=== PATIENT | male | born 1990 | race American Indian/Alaskan Native ===

== ENCOUNTER 2018-08-21 11:57 | Emergency (ER) | payer OTHER ==
--- NOTE | 2018-08-21 12:08 | Emergency Department Report ---
Blank Doc - Documentation Documentation: This is a 28-year-old male that productive cough, sore throat, and body aches. Stated has subjective fever and chills. Also stated has chest pain only during coughing. Denies any other complaints. This initial assessment diagnostic orders/clinical plan/treatment(s) is/are s ubject to change based on patient's health status, clinical progression and re- assessment by fellow clinical providers in the ED. Further treatment and workup at subsequent clinical providers discretion. Patient/guardians urged not to elope from ED s their condition may be serious if not clinically assessed and managed. Initial orders include: 1-Will order EKG and Chest xray
[2018-08-21] MEDS ORDERED: TORADOL IM ONE (13:19)
[2018-08-21] MEDS ORDERED: PROVENTIL IH ONE (13:20)
[2018-08-21] MEDS ORDERED: TORADOL IVP ONE (13:21)
[2018-08-21] MEDS ORDERED: NACL 0.9% 1000 ML 1,000 ML IV ONE (13:21)
--- NOTE | 2018-08-21 13:23 | Emergency Department Report ---
ED General Adult HPI - General Chief complaint: Fever Stated complaint: FLU LIKE Time Seen by Provider: 08/21/18 12:06 Source: patient Mode of arrival: Ambulatory Limitations: No Limitations - History of Present Illness Initial comments: Disposition emergency Department with a chief complaint of body aches, fever, sore throat and cough that started yesterday. Patient states he is having chest and back pain with coughing. Patient states he is taking [id number] medications or home for his fever. Patient denies any sick contacts. -: Sudden Severity scale (0 -10): 8 Quality: aching Consistency: constant Improves with: none Worsens with: none Associated Symptoms: denies other symptoms Treatments Prior to Arrival: none - Related Data Previous Rx's Medication Instructions Recorded Last Taken Type ALBUTEROL Inhaler (OR & NICU) 2 puff IH Q4HR PRN #1 inhalation 08/21/18 Unknown Rx [ProAir HFA Inhaler] Amoxicillin/Potassium Clav 1 each PO BID #14 tablet 08/21/18 Unknown Rx [Augmentin 875-125 Tablet] Ibuprofen [Motrin] 800 mg PO Q8HR PRN #30 tablet 08/21/18 Unknown Rx Oseltamivir [Tamiflu] 75 mg PO BID #10 cap 08/21/18 Unknown Rx Prednisone [predniSONE 10 mg 10 mg PO .TAPER #1 tab.ds.pk 08/21/18 Unknown Rx (6-Day Pack, 21 Tabs)] Allergies Allergy/AdvReac Type Severity Reaction Status Date / Time No Known Allergies Allergy Unverified 08/21/18 12:08 ED Review of Systems ROS: Stated complaint: FLU LIKE Other details as noted in HPI Comment: All other systems reviewed and negative Constitutional: denies: chills, fever Eyes: denies: eye pain, eye discharge, vision change ENT: throat pain. denies: ear pain Respiratory: denies: cough, shortness of breath, wheezing Cardiovascular: denies: chest pain, palpitations Endocrine: no symptoms reported Gastrointestinal: denies: abdominal pain, nausea, diarrhea Genitourinary: denies: urgency, dysuria Musculoskeletal: denies: back pain, joint swelling, arthralgia Skin: denies: rash, lesions Neurological: denies: headache, weakness, paresthesias Psychiatric: denies: anxiety, depression Hematological/Lymphatic: denies: easy bleeding, easy bruising ED Past Medical Hx - Past Medical History Previous Medical History?: No - Surgical History Past Surgical History?: No - Social History Smoking Status: Current Some Day Smoker Substance Use Type: None - Medications Home Medications: Home Medications Medication Instructions Recorded Confirmed Last Taken Type ALBUTEROL Inhaler (OR & NICU) 2 puff IH Q4HR PRN #1 inhalation 08/21/18 Unknown Rx [ProAir HFA Inhaler] Amoxicillin/Potassium Clav 1 each PO BID #14 tablet 08/21/18 Unknown Rx [Augmentin 875-125 Tablet] Ibuprofen [Motrin] 800 mg PO Q8HR PRN #30 tablet 08/21/18 Unknown Rx Oseltamivir [Tamiflu] 75 mg PO BID #10 cap 08/21/18 Unknown Rx Prednisone [predniSONE 10 mg 10 mg PO .TAPER #1 tab.ds.pk 08/21/18 Unknown Rx (6-Day Pack, 21 Tabs)] ED Physical Exam - General Limitations: No Limitations General appearance: alert, in no apparent distress - Head Head exam: Present: atraumatic, normocephalic - Eye Eye exam: Present: normal appearance, PERRL, EOMI - ENT ENT exam: Present: mucous membranes dry, other (the palatine tonsil beds have exudate) - Neck Neck exam: Present: normal inspection, full ROM. Absent: meningismus, lymphadenopathy, thyromegaly - Respiratory Respiratory exam: Present: normal lung sounds bilaterally, wheezes. Absent: respiratory distress, rales - Cardiovascular Cardiovascular Exam: Present: regular rate, normal rhythm. Absent: systolic murmur, diastolic murmur, rubs, gallop - GI/Abdominal GI/Abdominal exam: Present: soft, normal bowel sounds. Absent: distended, tenderness - Rectal Rectal exam: Present: deferred - Extremities Exam Extremities exam: Present: normal inspection - Back Exam Back exam: Present: normal inspection - Neurological Exam Neurological exam: Present: alert, oriented X3, CN II-XII intact. Absent: motor sensory deficit - Psychiatric Psychiatric exam: Present: normal affect, normal mood - Skin Skin exam: Present: warm, dry, intact, normal color. Absent: rash ED Course Vital Signs 08/21/18 12:06 Temperature 99.5 F Pulse Rate 96 H Respiratory 16 Rate Blood Pressure 157/74 O2 Sat by Pulse 97 Oximetry ED Medical Decision Making - Lab Data Lab Results 08/21/18 Range/Units 13:05 Influenza A (Rapid) Negative (Negative) Influenza B (Rapid) Negative (Negative) - Radiology Data Radiology results: report reviewed - Medical Decision Making Although the patient's rapid influenza test is negative the patient sows all classes symptoms of the flu which includes a significantly elevated temperature at home, muscle aches, and fatigue. Discussed results and plan acute with patient Patient felt better after receiving IV fluids and pain medicine Critical care attestation.: If time is entered above; I have spent that time in minutes in the direct care of this critically ill patient, excluding procedure time. ED Disposition Clinical Impression: Pharyngitis, Influenza Disposition: DC- TO HOME OR SELFCARE Is pt being admited?: No Does the pt Need Aspirin: No Condition: Stable Instructions: Pharyngitis (ED), Influenza (ED) Additional Instructions: return if worse Prescriptions: ALBUTEROL Inhaler (OR & NICU) [ProAir HFA Inhaler] 2 puff IH Q4HR PRN #1 inhalation PRN Reason: Shortness Of Breath Amoxicillin/Potassium Clav [Augmentin 875-125 Tablet] 1 each PO BID #14 tablet Ibuprofen [Motrin] 800 mg PO Q8HR PRN #30 tablet PRN Reason: Pain Oseltamivir [Tamiflu] 75 mg PO BID #10 cap Prednisone [predniSONE 10 mg (6-Day Pack, 21 Tabs)] 10 mg PO .TAPER #1 tab.ds.pk Referrals: LUCIANA BELTRAN [Primary Care Provider] - 3-5 Days [facility] [Provider Group] - 3-5 Days [facility] [Provider Group] - 3-5 Days Forms: Work/School Release Form(ED) Time of Disposition: 15:22
--- NOTE | 2018-08-21 13:30 | XRay Report ---
ROUTINE CHEST, TWO VIEWS: HISTORY: Cough. The trachea, heart, mediastinal contour, lung sandoval and bony thorax are unremarkable. IMPRESSION: Unremarkable chest x-ray.
[2018-08-21 15:53] VITALS: BP 152/98
== END 2018-08-21 15:52 | disposition home or self-care (01) ==
LOC: ED 11:57
DX: J11.1 Influenza due to unidentified influenza virus with other respiratory manifestations (principal); F17.200 Nicotine dependence, unspecified, uncomplicated
CPT/HCPCS: 71046; 87400; 93005; 93010; 96374; 99284; J1885; J7030

== ENCOUNTER 2018-08-22 18:15 | Emergency (ER) | payer OTHER ==
--- NOTE | 2018-08-22 18:44 | Emergency Department Report ---
Blank Doc - Documentation Documentation: 28 y o male was seen here yesterday and returns for same sx of throat pain. denies pmh of asthma reevaluate
[2018-08-22 19:49] VITALS: BP 178/113
--- NOTE | 2018-08-22 20:16 | Emergency Department Report ---
ED Fever HPI - General Chief Complaint: Fever Stated Complaint: SORE THROAT/FEVER Time Seen by Provider: 08/22/18 18:42 Source: patient - History of Present Illness Initial Comments: 28-year-old -Greek male who was seen yesterday comes back for sore throat and fever that reports is getting worse. Patient was discharged home on ibuprofen and Tamiflu prednisone and Augmentin as well as albuterol inhaler. Patient reports fever was 102.0.(Temperature in triage is 99.1. 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, Tylenol Associated Symptoms: sore throat ED Review of Systems ROS: Stated complaint: SORE THROAT/FEVER Other details as noted in HPI Comment: All other systems reviewed and negative Constitutional: fever ENT: throat pain ED Past Medical Hx - Past Medical History Previous Medical History?: No - Surgical History Past Surgical History?: Yes Additional Surgical History: TONSILS REMOVE - Social History Smoking Status: Current Some Day Smoker Substance Use Type: Alcohol - Medications Home Medications: Home Medications Medication Instructions Recorded Confirmed Last Taken Type ALBUTEROL Inhaler (OR & NICU) 2 puff IH Q4HR PRN #1 inhalation 08/21/18 Unknown Rx [ProAir HFA Inhaler] Amoxicillin/Potassium Clav 1 each PO BID #14 tablet 08/21/18 Unknown Rx [Augmentin 875-125 Tablet] Ibuprofen [Motrin] 800 mg PO Q8HR PRN #30 tablet 08/21/18 Unknown Rx Oseltamivir [Tamiflu] 75 mg PO BID #10 cap 08/21/18 Unknown Rx Prednisone [predniSONE 10 mg 10 mg PO .TAPER #1 tab.ds.pk 08/21/18 Unknown Rx (6-Day Pack, 21 Tabs)] ED Physical Exam - General Limitations: No Limitations General appearance: alert, in no apparent distress - Head Head exam: Present: atraumatic, normocephalic - Eye Eye exam: Present: EOMI - ENT ENT exam: Present: mucous membranes moist - Neck Neck exam: Present: normal inspection. Absent: lymphadenopathy - Respiratory Respiratory exam: Present: normal lung sounds bilaterally. Absent: respiratory distress - Cardiovascular Cardiovascular Exam: Present: regular rate, normal rhythm. Absent: systolic murmur, diastolic murmur, rubs, gallop - GI/Abdominal GI/Abdominal exam: Present: soft, normal bowel sounds - Neurological Exam Neurological exam: Present: alert, oriented X3 - Psychiatric Psychiatric exam: Present: normal affect, normal mood - Skin Skin exam: Present: warm, dry, intact, normal color. Absent: rash ED Course Vital Signs 08/22/18 18:41 Temperature 99.1 F Pulse Rate 100 H Respiratory 20 Rate Blood Pressure 178/113 O2 Sat by Pulse 98 Oximetry ED Medical Decision Making - Medical Decision Making Patient has been evaluated by this provider in fast track. Patient education on flulike symptoms and sore throat. I explained to patient that he is currently on appropriate medication for his symptoms and diagnosis. I explained to patient that it will take more than 24 hours for patient to be at baseline. Also spent to patient that he has to continue with the Tylenol and Motrin increases fluid intake. Discussed the patient that he needs to be sure he is on one layer of clothes when he has a fever. I discussed the patient he needs to follow up with the primary care provider for his elevated blood pressure and if his symptoms persist or gets worse. Patient verbalized understanding. Provider answer all questions. Critical care attestation.: If time is entered above; I have spent that time in minutes in the direct care of this critically ill patient, excluding procedure time. ED Disposition Clinical Impression: Pharyngitis Qualifiers: Pharyngitis/tonsillitis etiology: other specified organisms Qualified Code(s): J02.8 - Acute pharyngitis due to other specified organisms Disposition: DC-01 TO HOME OR SELFCARE Is pt being admited?: No Does the pt Need Aspirin: No Condition: Stable Instructions: Pharyngitis (ED) Additional Instructions: Please continue with medications that was prescribed to use yesterday. Please continue with Tylenol and Motrin for fever and pain control. Please increase her fluid intake advance her diet as tolerated light her body to rest. Follow- up with the primary care provider if his symptoms persist or gets worse. Referrals: LUCIANA BELTRAN [Primary Care Provider] - 3-5 Days Forms: Work/School Release Form(ED), Accompanied Note
== END 2018-08-22 20:22 | disposition home or self-care (01) ==
LOC: ED 18:15
DX: J02.8 Acute pharyngitis due to other specified organisms (principal); F17.200 Nicotine dependence, unspecified, uncomplicated
CPT/HCPCS: 99282

== ENCOUNTER 2019-01-17 23:54 | Emergency (ER) | payer OTHER ==
[2019-01-18] MEDS ORDERED: IBUPROFEN PO ONE (00:14)
[2019-01-18 04:53] VITALS: BP 144/94
--- NOTE | 2019-01-18 05:34 | Emergency Department Report ---
ED Back Pain/Injury HPI - General Chief Complaint: Back Pain/Injury Stated Complaint: BACK PAIN Time Seen by Provider: 01/18/19 04:45 Source: patient Limitations: No Limitations - History of Present Illness Initial Comments: Patient is a 28-year-old -[place] male with a history of chronic back pain from heavy lifting at work, presents to the ED with acute exacerbation of his chronic low back pain for the last 1 week. Patient denies fall, traumatic injury, numbness and tingling in the lower extremities bilaterally, hematuria, testicular pain, dysuria, urinary frequency and urgency, fever, chills, nausea, vomiting, fall, traumatic injury or saddle anesthesia. MD Complaint: back pain, other (chronic back pain) -: Gradual, year(s) (2) Similar Symptoms Previously: Yes (chronic) Place: work Radiation: none Severity: severe Severity scale (0 -10): 7 Quality: sharp, aching, tingling Consistency: constant Improves With: none Worsens With: movement, walking Context: while lifting, turning/twisting, bending Associated Symptoms: denies other symptoms, difficulty walking. denies: confusion, weakness, chest pain, numbness, cough, difficulty urinating, diaphoresis, incontinence, constipation, headaches, abdominal pain, malaise, nausea/vomiting, rash, seizure, shortness of breath, syncope - Related Data Previous Rx's Medication Instructions Recorded Last Taken Type ALBUTEROL Inhaler (OR & NICU) 2 puff IH Q4HR PRN #1 inhalation 08/21/18 Unknown Rx [ProAir HFA Inhaler] Amoxicillin/Potassium Clav 1 each PO BID #14 tablet 08/21/18 Unknown Rx [Augmentin 875-125 Tablet] Ibuprofen [Motrin] 800 mg PO Q8HR PRN #30 tablet 08/21/18 Unknown Rx Oseltamivir [Tamiflu] 75 mg PO BID #10 cap 08/21/18 Unknown Rx Prednisone [predniSONE 10 mg 10 mg PO .TAPER #1 tab.ds.pk 08/21/18 Unknown Rx (6-Day Pack, 21 Tabs)] Naproxen [Naprosyn TAB] 500 mg PO Q12H PRN #20 tablet 01/18/19 Unknown Rx predniSONE [Deltasone] 60 mg PO QDAY #15 tab 01/18/19 Unknown Rx tiZANidine [Zanaflex 4mg TAB] 4 mg PO Q8H PRN #21 tablet 01/18/19 Unknown Rx traMADol [Ultram] 50 mg PO Q6HR PRN #12 tablet 01/18/19 Unknown Rx Allergies Allergy/AdvReac Type Severity Reaction Status Date / Time No Known Allergies Allergy Verified 01/18/19 00:13 ED Review of Systems ROS: Stated complaint: BACK PAIN Other details as noted in HPI Constitutional: denies: chills, fever Eyes: denies: eye pain, eye discharge, vision change ENT: denies: ear pain, throat pain Respiratory: denies: cough, shortness of breath, wheezing Cardiovascular: denies: chest pain, palpitations Endocrine: no symptoms reported Gastrointestinal: denies: abdominal pain, nausea, diarrhea Genitourinary: denies: urgency, dysuria Musculoskeletal: back pain, arthralgia. denies: joint swelling Skin: denies: rash, lesions Neurological: denies: headache, weakness, paresthesias Psychiatric: denies: anxiety, depression Hematological/Lymphatic: denies: easy bleeding, easy bruising ED Past Medical Hx - Past Medical History Previous Medical History?: No - Surgical History Past Surgical History?: Yes Additional Surgical History: TONSILS REMOVE - Social History Smoking Status: Never Smoker Substance Use Type: None - Medications Home Medications: Home Medications Medication Instructions Recorded Confirmed Last Taken Type ALBUTEROL Inhaler (OR & NICU) 2 puff IH Q4HR PRN #1 inhalation 08/21/18 Unknown Rx [ProAir HFA Inhaler] Amoxicillin/Potassium Clav 1 each PO BID #14 tablet 08/21/18 Unknown Rx [Augmentin 875-125 Tablet] Ibuprofen [Motrin] 800 mg PO Q8HR PRN #30 tablet 08/21/18 Unknown Rx Oseltamivir [Tamiflu] 75 mg PO BID #10 cap 08/21/18 Unknown Rx Prednisone [predniSONE 10 mg 10 mg PO .TAPER #1 tab.ds.pk 08/21/18 Unknown Rx (6-Day Pack, 21 Tabs)] Naproxen [Naprosyn TAB] 500 mg PO Q12H PRN #20 tablet 01/18/19 Unknown Rx predniSONE [Deltasone] 60 mg PO QDAY #15 tab 01/18/19 Unknown Rx tiZANidine [Zanaflex 4mg TAB] 4 mg PO Q8H PRN #21 tablet 01/18/19 Unknown Rx traMADol [Ultram] 50 mg PO Q6HR PRN #12 tablet 01/18/19 Unknown Rx ED Physical Exam - General Limitations: No Limitations General appearance: alert, in no apparent distress - Head Head exam: Present: atraumatic, normocephalic, normal inspection - Eye Eye exam: Present: normal appearance, PERRL, EOMI. Absent: scleral icterus, conjunctival injection, nystagmus Pupils: Present: normal accommodation - ENT ENT exam: Present: normal exam, normal orophraynx, mucous membranes moist, TM's normal bilaterally, normal external ear exam - Neck Neck exam: Present: normal inspection, full ROM. Absent: tenderness - Respiratory Respiratory exam: Present: normal lung sounds bilaterally. Absent: respiratory distress, wheezes, rhonchi, chest wall tenderness, decreased breath sounds, prolonged expiratory - Cardiovascular Cardiovascular Exam: Present: normal rhythm, bradycardia, normal heart sounds. Absent: systolic murmur, diastolic murmur, rubs, gallop - GI/Abdominal GI/Abdominal exam: Present: soft, normal bowel sounds. Absent: distended, tenderness, guarding, rebound, hyperactive bowel sounds, hypoactive bowel sounds, organomegaly, mass - Rectal Rectal exam: Present: deferred - Extremities Exam Extremities exam: Present: normal inspection, full ROM, normal capillary refill - Back Exam Back exam: Present: normal inspection, full ROM, tenderness, muscle spasm, paraspinal tenderness (palpable lumbosacral paraspinal musculoskeletal tenderness). Absent: CVA tenderness (L) - Neurological Exam Neurological exam: Present: alert, oriented X3, CN II-XII intact, normal gait, reflexes normal - Psychiatric Psychiatric exam: Present: normal affect, normal mood - Skin Skin exam: Present: warm, dry, intact, normal color. Absent: rash ED Course Vital Signs 01/18/19 01/18/19 00:06 04:30 Temperature 97.9 F 99.1 F Pulse Rate 87 51 L Respiratory 16 18 Rate Blood Pressure 149/98 Blood Pressure 144/94 [Left] O2 Sat by Pulse 99 97 Oximetry - Reevaluation(s) Reevaluation #1: 01/18/19 05:33 Patient is alert and oriented 3 and is not in distress, sleeping during the physical exam, with normal vital signs. Patient was discharged home on pain medications and muscle relaxants and advised to follow-up with his primary care physician in 7-10 days for reevaluation. Advised to return to the ED immediately if symptoms get worse. ED Medical Decision Making - Medical Decision Making Patient is alert and oriented 3 and is not in distress, sleeping during the physical exam, with normal vital signs. Patient was discharged home on pain medications and muscle relaxants and advised to follow-up with his primary care physician in 7-10 days for reevaluation. Advised to return to the ED immediately if symptoms get worse. - Differential Diagnosis chronic low back pain, muscle spasm of back Critical care attestation.: If time is entered above; I have spent that time in minutes in the direct care of this critically ill patient, excluding procedure time. ED Disposition Clinical Impression: Acute exacerbation of chronic low back pain, Spasm of muscle of lower back Disposition: TO HOME OR SELFCARE Is pt being admited?: No Does the pt Need Aspirin: No Condition: Stable Instructions: Chronic Back Pain (ED), Muscle Spasm (ED) Additional Instructions: FOLLOW UP WITH YOUR PRIMARY CARE PHYSICIAN IN 7-10 DAYS FOR REEVALUATION. RETURN TO THE ED IMMEDIATELY IF SYMPTOMS GET WORSE Prescriptions: predniSONE [Deltasone] 60 mg PO QDAY #15 tab Naproxen [Naprosyn TAB] 500 mg PO Q12H PRN #20 tablet PRN Reason: Pain , Severe (7-10) traMADol [Ultram] 50 mg PO Q6HR PRN #12 tablet PRN Reason: Pain tiZANidine [Zanaflex 4mg TAB] 4 mg PO Q8H PRN #21 tablet PRN Reason: Spasms Referrals: LUCIANA BELTRAN MD [Primary Care Provider] - 3-5 Days Time of Disposition: 05:35 Print Language: WOLOF
== END 2019-01-18 06:05 | disposition home or self-care (01) ==
LOC: ED 23:54
DX: M62.830 Muscle spasm of back (principal); Z90.89 Acquired absence of other organs; Z79.899 Other long term (current) drug therapy; X50.0XXA Overexertion from strenuous movement or load, initial encounter; Y93.89 Activity, other specified; Y92.89 Other specified places as the place of occurrence of the external cause; Y99.0 Civilian activity done for income or pay
CPT/HCPCS: 99282

== ENCOUNTER 2019-02-02 20:28 | Emergency (ER) | payer OTHER ==
--- NOTE | 2019-02-02 20:43 | Emergency Department Report ---
Blank Doc - Documentation Documentation: This is a 28-year-old male that presents with lower back pain. Denies any inj uries. Denies any urinary symptoms. This initial assessment/diagnostic orders/clinical plan/treatment(s) is/are subject to change based on patient's health status, clinical progression and re-assessment by fellow clinical providers in the ED. Further treatment and workup at subsequent clinical providers discretion. Patient/guardians urged not to elope from the ED as their condition may be serious if not clinically assessed and managed. Initial orders include: 1- Patient sent to [facility] for further evaluation and treatment
--- NOTE | 2019-02-02 23:48 | Emergency Department Report ---
ED Back Pain/Injury HPI - General Chief Complaint: Back Pain/Injury Stated Complaint: BACK PAIN Time Seen by Provider: 02/02/19 20:43 Source: patient Limitations: No Limitations - History of Present Illness Initial Comments: Is a 28-year-old male presents to the ED complaining of left-sided back pain that happened this is all he was at work. Patient states that he was lifting heavy object when he felt like he strained a muscle on his back. He denies dysuria, follow-up trauma to the back. Patient describes pain as aching in nature. He rates it about 4-10 intensity. MD Complaint: back pain - Related Data Previous Rx's Medication Instructions Recorded Last Taken Type ALBUTEROL Inhaler (OR & NICU) 2 puff IH Q4HR PRN #1 inhalation 08/21/18 Unknown Rx [ProAir HFA Inhaler] Amoxicillin/Potassium Clav 1 each PO BID #14 tablet 08/21/18 Unknown Rx [Augmentin 875-125 Tablet] Ibuprofen [Motrin] 800 mg PO Q8HR PRN #30 tablet 08/21/18 Unknown Rx Oseltamivir [Tamiflu] 75 mg PO BID #10 cap 08/21/18 Unknown Rx Prednisone [predniSONE 10 mg 10 mg PO .TAPER #1 tab.ds.pk 08/21/18 Unknown Rx (6-Day Pack, 21 Tabs)] predniSONE [Deltasone] 60 mg PO QDAY #15 tab 01/18/19 Unknown Rx tiZANidine [Zanaflex 4mg TAB] 4 mg PO Q8H PRN #21 tablet 01/18/19 Unknown Rx traMADol [Ultram] 50 mg PO Q6HR PRN #12 tablet 01/18/19 Unknown Rx Cyclobenzaprine [Flexeril] 10 mg PO QHS PRN #15 tablet 02/02/19 Unknown Rx Naproxen [Naprosyn TAB] 500 mg PO Q12H PRN #20 tablet 02/02/19 Unknown Rx Allergies Allergy/AdvReac Type Severity Reaction Status Date / Time No Known Allergies Allergy Verified 01/18/19 00:13 ED Review of Systems ROS: Stated complaint: BACK PAIN Other details as noted in HPI Comment: All other systems reviewed and negative ED Past Medical Hx - Past Medical History Chronic Back Pain ED Back Pain Physical Exam - Exam General: Vital signs noted. No distress. Alert and acting appropriately. Back/Abdomen: No Abdominal Tenderness, No Perithoracic Tenderness, No Perilumbar Tenderness, No Sacroiliac Tenderness, No Flank Tenderness, No Straight Leg Raise Pain Neuro: Yes Normal Sensation, Yes Normal DTR's, Yes Normal Gait, No Motor Weakness ED Course Vital Signs 02/02/19 20:43 Temperature 98.3 F Pulse Rate 69 Respiratory 18 Rate O2 Sat by Pulse 97 Oximetry ED Medical Decision Making - Medical Decision Making 36-year-old female presents to ED with low back muscle strain Vital signs are normal patient is in no acute distress Discussed with patient follow-up with primary care physician. Discussed the patient and take medications as prescribed. Patient has no neurological deficit. Patient is alert and oriented 3 and understands all instructions given. Discussed drowsiness effect of Flexeril makes her drowsy and not to operate machinery while taking flexeril Critical care attestation.: If time is entered above; I have spent that time in minutes in the direct care of this critically ill patient, excluding procedure time. ED Disposition Clinical Impression: Strain of muscle, fascia and tendon of lower back, initial encounter Disposition: DC-01 TO HOME OR SELFCARE Is pt being admited?: No Does the pt Need Aspirin: No Condition: Stable Instructions: Muscle Strain (ED) Additional Instructions: Make sure to follow up with the primary care physician as discussed. Take all your medications as you've been prescribed. If you have any worsening symptoms or develop new symptoms please return to ED immediately. Prescriptions: Cyclobenzaprine [Flexeril] 10 mg PO QHS PRN #15 tablet PRN Reason: Muscle Spasm Naproxen [Naprosyn TAB] 500 mg PO Q12H PRN #20 tablet PRN Reason: Pain , Severe (7-10) Referrals: LUCIANA BELTRAN MD [Primary Care Provider] - 3-5 Days Forms: Work/School Release Form(ED) Time of Disposition: 23:52
[2019-02-03 00:34] VITALS: BP 126/69
== END 2019-02-03 00:34 | disposition home or self-care (01) ==
LOC: ED 20:28
DX: S39.012A Strain of muscle, fascia and tendon of lower back, initial encounter (principal); G89.29 Other chronic pain; Z79.1 Long term (current) use of non-steroidal anti-inflammatories (NSAID); Z79.899 Other long term (current) drug therapy; X50.0XXA Overexertion from strenuous movement or load, initial encounter; Y93.89 Activity, other specified; Y92.89 Other specified places as the place of occurrence of the external cause; Y99.8 Other external cause status
CPT/HCPCS: 99282

== ENCOUNTER 2019-12-13 22:14 | Emergency (ER) | payer OTHER ==
[2019-12-13 23:57] VITALS: BP 170/104
--- NOTE | 2019-12-14 00:32 | XRay Report ---
LEFT KNEE 3 VIEWS INDICATION / CLINICAL INFORMATION: Left knee pain. COMPARISON: None available. FINDINGS: BONES and JOINT(S): No acute fracture or subluxation. No significant arthritis. SOFT TISSUES: No significant abnormality. ADDITIONAL FINDINGS: None. IMPRESSION: 1. No acute findings. Signer Name: Zheng Treadwell MD Signed: 12/14/2019 12:28 AM Workstation Name: [facility]
== END 2019-12-14 | disposition left against medical advice (07) ==
LOC: ED 22:14
DX: M25.562 Pain in left knee (principal); Z53.21 Procedure and treatment not carried out due to patient leaving prior to being seen by health care provider